=== PATIENT | female | born 1960 | race Caucasian/White ===

== ENCOUNTER 2017-01-25 15:14 | Emergency (ER) | payer MEDICARE, OTHER ==
[~2017-01-25] VITALS: Ht 162.6 cm; Wt 86.2 kg
[~2017-01-25 15:14] MED LIST: TRAM50TA2 PO
[2017-01-25 15:18] VITALS: Ht 162.6 cm; Wt 86.2 kg
[2017-01-25] MEDS ORDERED: ASPIRIN 325 MG TAB PO STA (15:39)
[2017-01-25 16:32] LABS: ADD SCAN DIFF NO
[2017-01-25 16:35] LABS: BASOPHIL # 0.1 10^3/ul (0.0-0.1); BASOPHILS % 0.5 % (0.0-2.0); EOSINOPHILS # 0.2 10^3/ul (0.0-0.5); EOSINOPHILS % 2.2 % (0.0-7.0); HEMATOCRIT 42.4 % (37.0-47.0); HEMOGLOBIN 14.4 g/dl (12.0-16.0); LYMPHOCYTES # 4.8 10^3/ul (0.8-2.9); LYMPHOCYTES % 43.9 % (15.0-51.0); MEAN CORPUSCULAR HEMOGLOBIN 29.5 pg (29.0-33.0); MEAN CORPUSCULAR VOLUME 86.9 fl (82.0-101.0); MEAN PLATELET VOLUME 9.5 fl (7.4-10.4); MONOCYTE # 0.5 10^3/ul (0.3-0.9); NEUTROPHIL # 5.3 10^3/ul (1.6-7.5); NEUTROPHILS % 48.1 % (39.0-77.0); PLATELET COUNT 304 10^3/UL (140-415); RED BLOOD COUNT 4.88 10^6/ul (4.20-5.40); RED CELL DISTRIBUTION WIDTH 13.4 % (11.5-14.5); WHITE BLOOD COUNT 10.9 10^3/ul (4.8-10.8)
[2017-01-25 16:47] LABS: CHLORIDE 103 mmol/L (97-110); POTASSIUM 3.4 mmol/L (3.5-5.1); SODIUM 142 mmol/L (135-144)
[2017-01-25 16:49] LABS: CREATININE 0.53 mg/dl (0.44-1.00)
[2017-01-25 16:50] LABS: ANION GAP 16 (8-16); BLOOD UREA NITROGEN 13 mg/dl (7-20); CARBON DIOXIDE 26 mmol/L (21-31); GLUCOSE 99 mg/dl (70-220)
[2017-01-25 16:51] LABS: CALCIUM 9.9 mg/dl (8.4-10.2)
[2017-01-25 16:53] LABS: INR 1.06; PROTIME 13.8 Sec (12.2-14.2); PT RATIO 1.1
[2017-01-25 16:54] LABS: PARTIAL THROMBOPLASTIN TIME 29.7 Sec (25.0-35.0)
[2017-01-25] MEDS ORDERED: FAMO20TA18 PO (16:58)
[2017-01-25] MEDS ORDERED: MECL-77 PO (16:58)
[2017-01-25 16:59] LABS: B-TYPE NATRIURETIC PEPTIDE 88 PG/ML (0-125)
[2017-01-25] MEDS ORDERED: ZOLP10TA5 PO (16:59)
[2017-01-25] MEDS ORDERED: GABA300C16 PO (17:00)
[2017-01-25] MEDS ORDERED: LOSA50TA6 PO (17:00)
[2017-01-25] MEDS ORDERED: VILA20TA PO (17:01)
[2017-01-25] MEDS ORDERED: ROSU5TAB5 PO (17:01)
[2017-01-25] MEDS ORDERED: ACET325T45 PO (17:02)
[2017-01-25 17:03] LABS: TROPONIN-I < 0.012 ng/ml (0.00-0.12)
[2017-01-25] MEDS ORDERED: ALBUTEROL 0.083% (NEB) 2.5 MG/3 ML AMP HHN STA (17:23)
[2017-01-25] MEDS ORDERED: IPRATROPIUM (NEB) 0.5 MG/2.5 ML AMP HHN ONE (17:30)
[2017-01-25] MEDS ORDERED: ALBU18HF INHALATION (20:12)
[2017-01-25] MEDS ORDERED: NICO1PAT6 TD (20:12)
[2017-01-25] MEDS ORDERED: AZIT500T5 PO (20:12)
--- NOTE | 2017-01-25 20:22 | ERD ---
ER Documentation Chief Complaint Date/Time DATE: 01/25/17 TIME: 20:15 Chief Complaint so,cp x 2 weeks HPI This 56-year-old female presents with shortness of breath with some dry cough and generalized substernal chest pain for 2 weeks. Is made worse by walking. She also states that she is a smoker and is trying to quit. She's been recently diagnosed with hypertension but has no other medical issues. She has no nausea. ROS All systems reviewed and are negative except as per history of present illness. Medications Home Meds Active Scripts Albuterol Sulfate* (Ventolin HFA*) 18 Gm Hfa.aer.ad, 2 PUFF INHALATION Q4H, #1 INHALER Prov:LAURIKEEGAN DO 01/25/17 Azithromycin* (Azithromycin*) 500 Mg Tablet, 500 MG PO DAILY, #3 TAB Prov:KEEGAN CARREON DO 01/25/17 Nicotine* (Nicotine* Patch) 21 mg/day Patch, 1 EACH TD DAILY, #20 PATCH Prov:LAUIRKEEGAN 01/25/17 Reported Medications Acetaminophen* (Acetaminophen*) 325 Mg Tablet, 325 MG PO Q4H Y for PAIN AND OR ELEVATED TEMP, #30 TAB 01/25/17 Vilazodone Hcl (Viibryd) 20 Mg Tablet, 20 MG PO DAILY, TAB 01/25/17 Rosuvastatin Calcium* (Crestor*) 5 Mg Tablet, 5 MG PO QHS, #30 TAB 01/25/17 Losartan Potassium* (Losartan Potassium*) 50 Mg Tablet, 50 MG PO DAILY, TAB 01/25/17 Gabapentin* (Gabapentin*) 300 Mg Capsule, 300 MG PO TID, #90 CAP 01/25/17 Zolpidem Tartrate* (Zolpidem Tartrate*) 10 Mg Tablet, 10 MG PO QHS Y for INSOMNIA, #30 TAB 01/25/17 Famotidine* (Famotidine*) 20 Mg Tablet, 20 MG PO DAILY, #30 TAB 01/25/17 Meclizine Hcl* (Meclizine Hcl*) 25 Mg Tablet, 25 MG PO DAILY Y for DIZZINESS, TAB 01/25/17 Discontinued Scripts Tramadol HCl (Tramadol HCl) 50 Mg Tab, 50 MG PO Q4 Y for PAIN, #20 TAB Prov:MARGOT CID PA-C 05/09/15 Allergies Allergies: Coded Allergies: ampicillin (Verified Allergy, Mild, 01/25/17) PMhx/Soc History of Surgery: No Anesthesia Reaction: No Hx Neurological Disorder: No Hx Respiratory Disorders: No Hx Cardiac Disorders: Yes (htn) Hx Psychiatric Problems: No Hx Miscellaneous Medical Probl: Yes (arthritis) Hx Alcohol Use: No Hx Substance Use: No Hx Tobacco Use: No Smoking Status: Never smoker Physical Exam Vitals Vital Signs Date Time Temp Pulse Resp B/P Pulse Ox O2 Delivery O2 Flow Rate FiO2 01/25/17 18:35 63 20 98 Nasal Cannula 2.0 01/25/17 16:22 Nasal Cannula 2 01/25/17 15:18 98.2 78 20 141/79 99 Physical Exam Const: [] No distress Head: Atraumatic Eyes: Normal Conjunctiva ENT: Normal External Ears, Nose and Mouth. Neck: Full range of motion..~ No meningismus. Resp: Clear to auscultation bilaterally with slightly prolonged expiratory time. Cardio: Regular rate and rhythm, no murmurs Abd: Soft, non tender, non distended. Normal bowel sounds Skin: No petechiae or rashes Ext: No cyanosis, or edema Neur: Awake and alert and oriented 3, no focal deficits Psych: Normal Mood and Affect Result Diagram: 01/25/17 1622 01/25/17 1622 Results 24 hrs Laboratory Tests Test 01/25/17 16:22 White Blood Count 10.910^3/ul Red Blood Count 4.8810^6/ul Hemoglobin 14.4g/dl Hematocrit 42.4% Mean Corpuscular Volume 86.9fl Mean Corpuscular Hemoglobin 29.5pg Mean Corpuscular Hemoglobin Concent 34.0g/dl Red Cell Distribution Width 13.4% Platelet Count 98950^3/UL Mean Platelet Volume 9.5fl Neutrophils % 48.1% Lymphocytes % 43.9% Monocytes % 5.0% Eosinophils % 2.2% Basophils % 0.5% Nucleated Red Blood Cells % 0.0/100WBC Neutrophils # 5.310^3/ul Lymphocytes # 4.810^3/ul Monocytes # 0.510^3/ul Eosinophils # 0.210^3/ul Basophils # 0.110^3/ul Nucleated Red Blood Cells # 0.010^3/ul Prothrombin Time 13.8Sec Prothrombin Time Ratio 1.1 INR International Normalized Ratio 1.06 Activated Partial Thromboplast Time 29.7Sec Sodium Level 142mmol/L Potassium Level 3.4mmol/L Chloride Level 103mmol/L Carbon Dioxide Level 26mmol/L Anion Gap 16 Blood Urea Nitrogen 13mg/dl Creatinine 0.53mg/dl Glucose Level 99mg/dl Calcium Level 9.9mg/dl Troponin I < 0.012ng/ml B-Type Natriuretic Peptide 88PG/ML Current Medications Medications (Trade) Dose Ordered Sig/[place] Route PRN Reason Start Time Stop Time Status Last Admin Dose Admin Aspirin (Aspirin) 325 mg ONCE STAT PO 01/25/17 15:39 01/25/17 15:41 DC 01/25/17 16:24 Albuterol (Proventil 0.083% (Neb)) 5 mg ONCE STAT HHN 01/25/17 17:23 01/25/17 17:33 DC 01/25/17 18:34 Ipratropium [place] (Atrovent 0.02% (Neb)) 0.5 mg ONCE ONCE HHN 01/25/17 17:30 01/25/17 17:33 DC 01/25/17 18:34 Procedures/MDM 56-year-old female chest pain with cough. Has no risk factors for acute coronary syndrome suffer recently diagnosed hypertension. She was given aspirin and cardiac workup was performed. Patient has a completely normal EKG with no signs of ischemia as well as negative troponin. She did improve with breathing treatment and had slowly prolonged expiratory time indicating possible mild COPD. Because of a cough and some shortness of breath I'm going to discharge her with a course of azithromycin. Also discharging with albuterol inhaler. She is requested help with smoking cessation after discussion I'm also discharging her with 20 day supply of nicotine patches. Primary care follow-up in the next 2-3 days return precautions to the ER for any acute change. EKG interpretation: Normal sinus rhythm rate of 70, normal axis, no ST-T wave changes concerning for acute ischemia, normal intervals. Normal EKG electronic device monitor interpretation: Normal sinus rhythm without arrhythmia Bedside cardiac echo interpretation: See normal wall motion with ejection fraction of part approximately 60-70%. I see no valvular abnormalities. No pericardial effusion. Departure Diagnosis: Primary Impression: Dyspnea Additional Impressions: Chest pain Smoking Condition: Stable Patient Instructions: Bronchitis, Antiobiotic Treatment (Adult), Chest Pain, Uncertain Cause, Smoking Cessation Additional Instructions: Call your primary care doctor TOMORROW for an appointment during the next 2-3 days.See the doctor sooner or return here if your condition worsens before your appointment time. KEEGAN CARREON DO Jan 25, 2017 20:22
[2017-01-25 20:23] VITALS: BP 115/77; PULSE 71; RESP 19
== END 2017-01-25 20:09 | disposition home or self-care (01) ==
LOC: E/R 15:14
DX: R06.00 Dyspnea, unspecified (principal); R07.9 Chest pain, unspecified; F17.210 Nicotine dependence, cigarettes, uncomplicated; I10 Essential (primary) hypertension
CPT/HCPCS: 36415; 80048; 83880; 84484; 85025; 85610; 85730; 93005; 93306; 94664